=== PATIENT | female | born 1965 | race African-American/Black ===

== ENCOUNTER 2018-01-15 06:11 | Inpatient (IN) | payer MEDICAID ==
[~2018-01-15] VITALS: Ht 175.3 cm; Wt 127.5 kg
[~2018-01-15 06:11] MED LIST: BACL-141 PO; GABA100C PO
[2018-01-15] MEDS ORDERED: MORPHINE SULFATE 4 MG/ML CPJ (NOT FOR IM USE) IV STA (06:56)
[2018-01-15] MEDS ORDERED: ONDANSETRON HCL 4MG/2ML INJ IV STA (06:56)
[2018-01-15] MEDS ORDERED: NITROGLYCERIN OINT 1GM/INCH UDPKT TD ONE (07:00)
[2018-01-15] MEDS ORDERED: ENALAPRIL 2.5MG/2ML VIAL 2ML IV ONE (07:00)
[2018-01-15] MEDS ORDERED: NITROGLYCERIN 0.4MG TABLET SL SL PRN (07:00)
[2018-01-15] MEDS ORDERED: ASPIRIN 81MG TABLET PO ONE (07:00)
[2018-01-15 07:15] LABS: BASOPHILS % 0.6 % (0.0-2.0); EOSINOPHILS % 1.7 % (0.0-5.0); HEMATOCRIT. 37.9 % (36.0-48.0); HEMOGLOBIN. 12.4 g/dL (12.0-16.0); LYMPHOCYTES % 29.1 % (20.0-50.0); MEAN CORPUSCULAR HEMOGLOBIN 26.7 pg (28.0-32.0); MEAN CORPUSCULAR VOLUME 81.8 fL (81.0-99.0); MEAN PLATELET VOLUME 8.4 fl (7.4-10.4); MONOCYTES % 7.2 % (2.0-8.0); NEUTROPHILS % 61.4 % (40.0-76.0); PLATELET 292 x1000/uL (130-400); RED BLOOD CELL COUNT 4.63 mill/uL (4.2-5.4); RED CELL DISTRIBUTION WIDTH 16.9 % (11.6-14.6)
[2018-01-15 07:22] LABS: CHLORIDE 109 mEq/L (98-107)
[2018-01-15 07:30] LABS: CREATINE KINASE 164 IU/L (26-192)
[2018-01-15 07:33] LABS: CREATINE KINASE MB FRACTION 1.2 ng/mL (0.5-3.6)
[2018-01-15 07:35] LABS: PARTIAL THROMBOPLASTIN TIME 27.8 sec (23.4-31.0); PROTHROMBIN TIME 10.3 sec (9.1-11.1)
[2018-01-15] MEDS ORDERED: REGADENOSON 0.4 MG/5 ML IV SCH (15:30)
[2018-01-15 15:45] VITALS: BP 149/81
[2018-01-15] MEDS: CLONIDINE 0.1MG TABLET PO PRN (16:23)
[2018-01-15 17:45] VITALS: BP 149/81
[2018-01-15 18:00] VITALS: BP 149/81
[2018-01-15] MEDS ORDERED: ONDANSETRON HCL 4MG/2ML INJ IV PRN (18:00)
[2018-01-15 20:00] VITALS: BP 143/80
[2018-01-15] MEDS ORDERED: BACLOFEN 10MG TABLET PO PRN (20:30)
[2018-01-15] MEDS: IBUPROFEN 800MG TABLET PO PRN (21:00)
[2018-01-15] MEDS: AMLODIPINE 5MG TABLET PO SCH (21:07)
[2018-01-15] MEDS: ENOXAPARIN 30MG/0.3ML SYR SUBCUT SCH (21:08)
[2018-01-16] VITALS: BP 150/80
[2018-01-16] MEDS: ACETAMINOPHEN 325MG TABLET PO PRN ×3 (00:24→17:23)
[2018-01-16 04:00] VITALS: BP 127/69
[2018-01-16 07:07] LABS: BASOPHILS % 0.6 % (0.0-2.0); EOSINOPHILS % 1.9 % (0.0-5.0); HEMATOCRIT. 33.1 % (36.0-48.0); HEMOGLOBIN. 10.8 g/dL (12.0-16.0); LYMPHOCYTES % 28.8 % (20.0-50.0); MEAN CORPUSCULAR HEMOGLOBIN 26.8 pg (28.0-32.0); MEAN CORPUSCULAR VOLUME 82.3 fL (81.0-99.0); MONOCYTES % 6.9 % (2.0-8.0); NEUTROPHILS % 61.8 % (40.0-76.0); PLATELET 235 x1000/uL (130-400); RED BLOOD CELL COUNT 4.02 mill/uL (4.2-5.4); RED CELL DISTRIBUTION WIDTH 16.3 % (11.6-14.6)
[2018-01-16 07:37] LABS: CHLORIDE 109 mEq/L (98-107)
[2018-01-16 08:00] VITALS: BP 146/67
[2018-01-16] MEDS: IBUPROFEN 800MG TABLET PO PRN (08:35)
[2018-01-16] MEDS: ENOXAPARIN 30MG/0.3ML SYR SUBCUT SCH ×2 (08:35→21:41)
[2018-01-16] MEDS: AMLODIPINE 5MG TABLET PO SCH ×2 (08:35→21:40)
[2018-01-16] MEDS: ASPIRIN 81MG EC TABLET PO SCH (08:35)
[2018-01-16 12:00] VITALS: BP_SYST 130; BP_SYST 146; BP_DIAS 66; BP_DIAS 74
[2018-01-16] MEDS: HYDROCODONE/ACETAMINOPHEN 5/325MG TABLET PO PRN (12:34)
[2018-01-16 16:00] VITALS: BP 163/80
[2018-01-16] MEDS: CLONIDINE 0.1MG TABLET PO PRN (17:23)
[2018-01-16 20:00] VITALS: BP 149/77
[2018-01-17] VITALS (7 sets, daily range): BP systolic 118–187; BP diastolic 73–86
[2018-01-17] MEDS: HYDROCODONE/ACETAMINOPHEN 5/325MG TABLET PO PRN ×3 (01:54→21:56)
[2018-01-17 07:12] LABS: BASOPHILS % 0.5 % (0.0-2.0); EOSINOPHILS % 1.7 % (0.0-5.0); HEMATOCRIT. 35.3 % (36.0-48.0); HEMOGLOBIN. 11.6 g/dL (12.0-16.0); LYMPHOCYTES % 30.1 % (20.0-50.0); MEAN CORPUSCULAR VOLUME 82.3 fL (81.0-99.0); MEAN PLATELET VOLUME 8.8 fl (7.4-10.4); NEUTROPHILS % 61.7 % (40.0-76.0); PLATELET 272 x1000/uL (130-400); RED BLOOD CELL COUNT 4.29 mill/uL (4.2-5.4); RED CELL DISTRIBUTION WIDTH 16.3 % (11.6-14.6)
[2018-01-17] MEDS ORDERED: DIPHENHYDRAMINE 25MG CAPSULE PO PRN (07:15)
[2018-01-17 07:40] LABS: CHLORIDE 106 mEq/L (98-107)
[2018-01-17] MEDS: AMLODIPINE 5MG TABLET PO SCH ×2 (08:53→21:47)
[2018-01-17] MEDS: ENOXAPARIN 30MG/0.3ML SYR SUBCUT SCH ×2 (08:53→21:48)
[2018-01-17] MEDS: ASPIRIN 81MG EC TABLET PO SCH (08:53)
[2018-01-17] MEDS: CLONIDINE 0.1MG TABLET PO PRN (16:18)
[2018-01-17] MEDS: PANTOPRAZOLE 40MG DR TABLET PO SCH (18:01)
[2018-01-18 00:05] VITALS: BP 148/64
[2018-01-18 04:00] VITALS: BP 152/62
[2018-01-18 08:00] VITALS: BP 162/81
[2018-01-18] MEDS ORDERED: REGADENOSON 0.4 MG/5 ML IV ONE (08:36)
[2018-01-18] MEDS: ASPIRIN 81MG EC TABLET PO SCH (09:27)
[2018-01-18] MEDS: AMLODIPINE 5MG TABLET PO SCH (09:27)
[2018-01-18] MEDS: ENOXAPARIN 30MG/0.3ML SYR SUBCUT SCH (09:28)
[2018-01-18] MEDS: PANTOPRAZOLE 40MG DR TABLET PO SCH (09:28)
[2018-01-18 09:43] LABS: BASOPHILS % 0.4 % (0.0-2.0); EOSINOPHILS % 1.6 % (0.0-5.0); HEMATOCRIT. 36.9 % (36.0-48.0); HEMOGLOBIN. 11.8 g/dL (12.0-16.0); LYMPHOCYTES % 29.8 % (20.0-50.0); MEAN CORPUSCULAR HEMOGLOBIN 26.7 pg (28.0-32.0); MEAN CORPUSCULAR VOLUME 83.5 fL (81.0-99.0); MEAN PLATELET VOLUME 8.7 fl (7.4-10.4); NEUTROPHILS % 61.2 % (40.0-76.0); PLATELET 243 x1000/uL (130-400); RED BLOOD CELL COUNT 4.42 mill/uL (4.2-5.4); RED CELL DISTRIBUTION WIDTH 16.3 % (11.6-14.6)
[2018-01-18 12:00] VITALS: BP 141/84
[2018-01-18] MEDS: HYDROCODONE/ACETAMINOPHEN 5/325MG TABLET PO PRN (12:44)
[2018-01-18 13:47] LABS: CHLORIDE 107 mEq/L (98-107)
[2018-01-18 17:18] VITALS: BP 135/67
[2018-01-18] MEDS ORDERED: ENOXAPARIN 40MG/0.4ML SYR SUBCUT SCH (21:00)
== END 2018-01-18 19:10 | disposition home or self-care (01) | DRG 199 ==
LOC: ER 06:11 → 7WST 09:29 → ENRESERV 16:07
PROVIDERS: ADMIT Internal Medicine; ATTEND Internal Medicine
DX: I11.9 Hypertensive heart disease without heart failure (principal); Z68.41 Body mass index [BMI] 40.0-44.9, adult; E66.09 Other obesity due to excess calories; K21.9 Gastro-esophageal reflux disease without esophagitis; R00.1 Bradycardia, unspecified; G89.29 Other chronic pain; G43.909 Migraine, unspecified, not intractable, without status migrainosus; Z82.49 Family history of ischemic heart disease and other diseases of the circulatory system; Z98.84 Bariatric surgery status; Z88.5 Allergy status to narcotic agent; Z79.899 Other long term (current) drug therapy
CPT/HCPCS: 36415; 71045; 78452; 80048; 82550; 82553; 83880; 84484; 93005; 93017; 93306; 96374; 96375; 99291; A9500; J1650; J2270; J2405; J2785; J3490

== ENCOUNTER 2018-11-30 23:25 | Emergency (ER) | payer MEDICAID ==
[~2018-11-30] VITALS: Ht 180.3 cm; Wt 141.0 kg
[2018-12-01] MEDS ORDERED: IBUPROFEN 600MG TABLET PO ONE (02:30)
[2018-12-01] MEDS ORDERED: KETOROLAC 30MG/ML VIAL IM STA (03:36)
[2018-12-01 04:07] VITALS: BP 157/76
== END 2018-12-01 04:26 | disposition home or self-care (01) ==
LOC: ER 23:25
DX: R51 Headache (principal); M25.561 Pain in right knee; R07.89 Other chest pain; M79.10 Myalgia, unspecified site; I10 Essential (primary) hypertension; V49.9XXA Car occupant (driver) (passenger) injured in unspecified traffic accident, initial encounter; Y93.9 Activity, unspecified; Y92.410 Unspecified street and highway as the place of occurrence of the external cause; Z88.6 Allergy status to analgesic agent
CPT/HCPCS: 71045; 73562; 93005; 96372; 99283; J1885